=== PATIENT | female | born 1965 | race Hispanic/Latino ===

== ENCOUNTER 2022-08-16 09:44 | Emergency (ER) | payer OTHER ==
[~2022-08-16] VITALS: Ht 165.1 cm; Wt 127.1 kg
[2022-08-16] MEDS ORDERED: FAMOTIDINE 20 MG/2 ML VIAL IV STA (10:36)
[2022-08-16] MEDS ORDERED: ASPIRIN 325 MG TAB PO ONE (10:45)
[2022-08-16] MEDS ORDERED: OMEPRAZOLE20 M1 (10:46)
[2022-08-16] MEDS ORDERED: FAMOTIDINE 20 MG/2 ML VIAL IV ONE (10:55)
[2022-08-16] MEDS ORDERED: ASPIRIN 325 MG TAB ONE (10:55)
== END 2022-08-16 12:59 | disposition home or self-care (01) ==
LOC: FSED 09:56
DX: R07.9 Chest pain, unspecified (principal); K21.9 Gastro-esophageal reflux disease without esophagitis; D64.9 Anemia, unspecified; E66.01 Morbid (severe) obesity due to excess calories; R94.31 Abnormal electrocardiogram [ECG] [EKG]
CPT/HCPCS: 71046; 80053; 81003; 82553; 84484; 85025; 93005; 96374; 99284